=== PATIENT | male | born 1990 | race Caucasian/White ===

== ENCOUNTER 2018-04-05 23:36 | Emergency (ER) | payer OTHER ==
[~2018-04-05] VITALS: Ht 160 cm; Wt 59.0 kg
[2018-04-05] MEDS ORDERED: PERCOCET 2.5-31 EACH (23:43)
[2018-04-06] MEDS ORDERED: BENADRYL25 MG PO (04:24)
[2018-04-06] MEDS ORDERED: BETANATE15 GM TOP (04:24)
[2018-04-06] MEDS ORDERED: MEDROL8 MG PO (04:24)
== END 2018-04-06 04:30 | disposition home or self-care (01) ==
LOC: ER 23:36
DX: L30.8 Other specified dermatitis (principal)